=== PATIENT | male | born 1970 | race Caucasian/White ===

== ENCOUNTER 2016-10-31 19:53 | Inpatient (IN) | payer MEDICAID ==
[~2016-10-31] VITALS: Ht 182.9 cm; Wt 98.3 kg
[2016-10-31] MEDS ORDERED: LITH300C3 PO (22:44)
[2016-10-31] MEDS ORDERED: CITA20TA9 PO (22:44)
[2016-10-31] MEDS ORDERED: BENZ1TAB10 PO (22:44)
[2016-10-31] MEDS ORDERED: VIST50 PO (22:44)
[2016-10-31] MEDS ORDERED: HALO5 PO (22:44)
[2016-11-01 00:04] VITALS: BP 110/71
[2016-11-01 08:28] VITALS: BP 102/66
[2016-11-01 08:46] LABS: BASOPHILS % (AUTO) 0.6 % (0.0-2.0); EOSINOPHILS % (AUTO) 8.4 % (1.0-6.0); HEMATOCRIT 43.5 % (41-53); HEMOGLOBIN 14.2 g/dL (13.5-17.5); LYMPHOCYTES # (AUTO) 2.6 K/uL (1.0-4.8); LYMPHOCYTES % (AUTO) 32.5 % (22.0-44.0); MEAN CORPUSCULAR HEMOGLOBIN 28.6 pg (26.0-34.0); MEAN CORPUSCULAR HGB CONC 32.7 G/dL (31.0-37.0); MEAN CORPUSCULAR VOLUME 87 fL (80-100); MONOCYTES # (AUTO) 0.5 K/uL (0.1-1.0); MONOCYTES % (AUTO) 5.9 % (2.0-9.0); NEUTROPHILS # (AUTO) 4.2 K/uL (1.8-7.7); NEUTROPHILS % (AUTO) 52.6 % (40.0-70.0); PLATELET COUNT (AUTO) 215 K/uL (150-450); RED BLOOD CELL COUNT(AUTO) 4.97 MIL/uL (4.50-5.90); RED CELL DISTRIBUTION WIDTH 12.8 % (11.5-14.5); WHITE BLOOD COUNT (AUTO) 8.1 K/uL (4.5-11.0)
[2016-11-01 09:29] LABS: HEMOGLOBIN A1C 6.2 % (4.5-6.2)
[2016-11-01] MEDS: LORazepam 2 MG TABLET PO PRN ×2 (09:29→18:59)
[2016-11-01 09:55] LABS: ALANINE AMINOTRANSFERASE 47 U/L (12-78); ALBUMIN 3.5 g/dL (3.4-5.0); ANION GAP 10 mmol/L (8-16); ASPARTATE AMINOTRANSFERASE 26 U/L (15-37); BILIRUBIN,TOTAL 0.7 mg/dL (0.1-1.0); CALCIUM, TOTAL 8.8 mg/dL (8.8-10.5); CARBON DIOXIDE 28 mmol/L (22-29); CHLORIDE 103 mmol/L (98-107); CREATININE 1.03 mg/dL (0.60-1.30); GLOMERULAR FILTR. RATE CALC > 60 mL/min (>60); POTASSIUM 3.4 mmol/L (3.5-5.1); SODIUM SERUM 141 mmol/L (136-145); THYROID STIMULATING HORMONE 1.85 uIU/mL (0.36-3.74); TOTAL PROTEIN, SERUM 7.5 g/dL (6.4-8.2); UREA NITROGEN, BLOOD 13 mg/dL (7-18)
[2016-11-01] MEDS ORDERED: LORATADINE 10 MG TABLET PO PRN (10:15)
[2016-11-01 16:19] VITALS: BP 104/65
[2016-11-01] MEDS ORDERED: POTASSIUM CHLORIDE 20 MEQ ER TABLET PO ONE (17:15)
[2016-11-01 17:27] VITALS: BP 118/75
[2016-11-01] MEDS: BENZTROPINE MESYLATE 1 MG TABLET PO SCH (20:02)
[2016-11-01] MEDS: HALOPERIDOL 10 MG TABLET PO SCH (20:03)
[2016-11-01] MEDS: ZOLPIDEM TARTRATE 10 MG TABLET PO PRN (20:03)
[2016-11-02 06:39] VITALS: BP 129/74
[2016-11-02 08:35] VITALS: BP 109/72
[2016-11-02] MEDS: CITALOPRAM HYDROBROMIDE 20 MG TABLET PO SCH (08:42)
[2016-11-02] MEDS: LITHIUM CARBONATE 300 MG CAPSULE PO SCH ×2 (08:42→16:21)
[2016-11-02] MEDS ORDERED: ACETAMINOPHEN 325 MG TABLET PO PRN (10:30)
[2016-11-02] MEDS ORDERED: IBUPROFEN 400 MG TABLET PO PRN (10:30)
[2016-11-02] MEDS: LORazepam 2 MG TABLET PO PRN (12:57)
[2016-11-02 16:12] VITALS: BP 127/68
[2016-11-02] MEDS: BENZTROPINE MESYLATE 1 MG TABLET PO SCH (20:45)
[2016-11-02] MEDS: ZOLPIDEM TARTRATE 10 MG TABLET PO PRN (20:45)
[2016-11-02] MEDS: HALOPERIDOL 10 MG TABLET PO SCH (20:46)
[2016-11-02] MEDS: SIMVASTATIN 10 MG TABLET PO SCH (20:46)
[2016-11-03 00:38] VITALS: BP 111/67
[2016-11-03 08:35] VITALS: BP 104/71
[2016-11-03] MEDS: CITALOPRAM HYDROBROMIDE 20 MG TABLET PO SCH (09:20)
[2016-11-03] MEDS: LITHIUM CARBONATE 300 MG CAPSULE PO SCH ×2 (09:20→16:25)
[2016-11-03] MEDS: LORazepam 2 MG TABLET PO PRN ×2 (09:31→19:13)
[2016-11-03 16:00] VITALS: BP 106/80
[2016-11-03] MEDS: SIMVASTATIN 10 MG TABLET PO SCH (20:16)
[2016-11-03] MEDS: BENZTROPINE MESYLATE 1 MG TABLET PO SCH (20:16)
[2016-11-03] MEDS: HALOPERIDOL 10 MG TABLET PO SCH (20:16)
[2016-11-04 06:20] VITALS: BP 106/68
[2016-11-04] MEDS: LORazepam 2 MG TABLET PO PRN ×2 (06:24→12:29)
[2016-11-04 08:23] VITALS: BP 106/63
[2016-11-04] MEDS: HALOPERIDOL 5 MG TABLET PO SCH (09:12)
[2016-11-04] MEDS: CITALOPRAM HYDROBROMIDE 20 MG TABLET PO SCH (09:12)
[2016-11-04] MEDS: LITHIUM CARBONATE 300 MG CAPSULE PO SCH ×2 (09:12→16:27)
[2016-11-04] MEDS: HALOPERIDOL 5 MG TABLET PO PRN (13:54)
[2016-11-04 16:20] VITALS: BP 112/71
[2016-11-04] MEDS: SIMVASTATIN 10 MG TABLET PO SCH (20:34)
[2016-11-04] MEDS: BENZTROPINE MESYLATE 1 MG TABLET PO SCH (20:34)
[2016-11-04] MEDS: HALOPERIDOL 10 MG TABLET PO SCH (20:34)
[2016-11-04] MEDS: ZOLPIDEM TARTRATE 10 MG TABLET PO PRN (22:32)
[2016-11-05 00:34] VITALS: BP 109/69
[2016-11-05] MEDS: GuaiFENesin/D-METHORPHAN [SUGAR-FREE] 200-20MG/10 ML SYRUP UDCUP PO PRN (06:38)
[2016-11-05 07:05] VITALS: BP 111/116
[2016-11-05] MEDS: HALOPERIDOL 5 MG TABLET PO SCH (09:19)
[2016-11-05] MEDS: LITHIUM CARBONATE 300 MG CAPSULE PO SCH ×2 (09:19→17:14)
[2016-11-05] MEDS: CITALOPRAM HYDROBROMIDE 20 MG TABLET PO SCH (09:19)
[2016-11-05] MEDS: LORazepam 2 MG TABLET PO PRN ×2 (11:49→15:52)
[2016-11-05 13:35] VITALS: BP 116/60
[2016-11-05 16:30] VITALS: BP 114/72
[2016-11-05] MEDS: HALOPERIDOL 10 MG TABLET PO SCH (17:15)
[2016-11-05] MEDS: BENZTROPINE MESYLATE 1 MG TABLET PO SCH (20:42)
[2016-11-05] MEDS: SIMVASTATIN 10 MG TABLET PO SCH (20:42)
[2016-11-06 06:35] VITALS: BP 108/64
[2016-11-06 08:40] VITALS: BP 100/67
[2016-11-06] MEDS: LITHIUM CARBONATE 300 MG CAPSULE PO SCH (08:57)
[2016-11-06] MEDS: CITALOPRAM HYDROBROMIDE 20 MG TABLET PO SCH (08:57)
[2016-11-06] MEDS: HALOPERIDOL 10 MG TABLET PO SCH ×2 (08:57→16:08)
[2016-11-06] MEDS: LORazepam 2 MG TABLET PO PRN ×2 (09:52→19:26)
[2016-11-06 16:08] VITALS: BP 105/69
[2016-11-06] MEDS: GuaiFENesin/D-METHORPHAN [SUGAR-FREE] 200-20MG/10 ML SYRUP UDCUP PO PRN (19:26)
[2016-11-06] MEDS: BENZTROPINE MESYLATE 1 MG TABLET PO SCH (20:36)
[2016-11-06] MEDS: SIMVASTATIN 10 MG TABLET PO SCH (20:36)
[2016-11-06] MEDS: LITHIUM CARBONATE 600 MG CAPSULE PO SCH (20:37)
[2016-11-07 06:13] VITALS: BP 109/60
[2016-11-07 08:12] VITALS: BP 126/76
[2016-11-07] MEDS: HALOPERIDOL 10 MG TABLET PO SCH ×2 (09:03→16:46)
[2016-11-07] MEDS: CITALOPRAM HYDROBROMIDE 20 MG TABLET PO SCH (09:03)
[2016-11-07] MEDS: LITHIUM CARBONATE 300 MG CAPSULE PO SCH (09:03)
[2016-11-07] MEDS: LORazepam 2 MG TABLET PO PRN (12:14)
[2016-11-07 16:35] VITALS: BP 101/64
[2016-11-07] MEDS: BENZTROPINE MESYLATE 1 MG TABLET PO SCH (20:30)
[2016-11-07] MEDS: SIMVASTATIN 10 MG TABLET PO SCH (20:30)
[2016-11-07] MEDS: LITHIUM CARBONATE 600 MG CAPSULE PO SCH (20:35)
[2016-11-07] MEDS: ZOLPIDEM TARTRATE 10 MG TABLET PO PRN (21:17)
[2016-11-08 06:29] VITALS: BP 118/71
[2016-11-08 08:00] VITALS: BP 111/71
[2016-11-08] MEDS: LITHIUM CARBONATE 300 MG CAPSULE PO SCH (09:00)
[2016-11-08] MEDS: HALOPERIDOL 10 MG TABLET PO SCH ×2 (09:00→18:19)
[2016-11-08] MEDS: CITALOPRAM HYDROBROMIDE 20 MG TABLET PO SCH (09:00)
[2016-11-08] MEDS: LORazepam 2 MG TABLET PO PRN ×2 (11:12→19:09)
[2016-11-08] MEDS: HALOPERIDOL 5 MG TABLET PO PRN (11:14)
[2016-11-08 16:10] VITALS: BP 125/74
[2016-11-08] MEDS: SIMVASTATIN 10 MG TABLET PO SCH (21:48)
[2016-11-08] MEDS: BENZTROPINE MESYLATE 1 MG TABLET PO SCH (21:48)
[2016-11-08] MEDS: LITHIUM CARBONATE 600 MG CAPSULE PO SCH (21:48)
[2016-11-09 00:15] VITALS: BP 114/73
[2016-11-09 08:47] VITALS: BP 101/67
[2016-11-09] MEDS: LORazepam 2 MG TABLET PO PRN (10:05)
[2016-11-09] MEDS: LITHIUM CARBONATE 300 MG CAPSULE PO SCH (10:05)
[2016-11-09] MEDS: HALOPERIDOL 10 MG TABLET PO SCH (10:05)
[2016-11-09] MEDS: CITALOPRAM HYDROBROMIDE 20 MG TABLET PO SCH (10:05)
[2016-11-09] MEDS ORDERED: LITH600 PO (11:22)
[2016-11-09] MEDS ORDERED: SIMV-259 PO (11:22)
== END 2016-11-09 13:25 | disposition home or self-care (01) | DRG 750 ==
LOC: B2S 22:33 → EDSTATUS 22:36
DX: F25.1 Schizoaffective disorder, depressive type (principal); R45.851 Suicidal ideations; E78.5 Hyperlipidemia, unspecified; E87.6 Hypokalemia; F10.10 Alcohol abuse, uncomplicated; F19.10 Other psychoactive substance abuse, uncomplicated; F99 Mental disorder, not otherwise specified; Z79.899 Other long term (current) drug therapy
CPT/HCPCS: 83036; 84132; 84439; 84443

== ENCOUNTER 2017-03-28 19:50 | Inpatient (IN) | payer MEDICAID ==
[~2017-03-28] VITALS: Ht 180.3 cm; Wt 96.4 kg
[~2017-03-28 19:50] MED LIST: BENZ1TAB10 PO; CITA20TA9 PO; HALO5 PO; LITH300C3 PO; LITH600 PO; SIMV-259 PO
[2017-03-28 22:23] VITALS: BP 102/72
[2017-03-28 23:54] VITALS: BP 96/68
[2017-03-29 06:03] VITALS: BP 105/70
[2017-03-29] MEDS: LORazepam 2 MG TABLET PO PRN ×2 (06:08→10:40)
[2017-03-29 08:23] LABS: BASOPHILS % (AUTO) 0.2 % (0.0-2.0); EOSINOPHILS % (AUTO) 8.2 % (1.0-6.0); HEMATOCRIT 40.9 % (41-53); HEMOGLOBIN 13.8 g/dL (13.5-17.5); LYMPHOCYTES # (AUTO) 1.8 K/uL (1.0-4.8); LYMPHOCYTES % (AUTO) 27.5 % (22.0-44.0); MEAN CORPUSCULAR HGB CONC 33.8 G/dL (31.0-37.0); MEAN CORPUSCULAR VOLUME 89 fL (80-100); MONOCYTES # (AUTO) 0.3 K/uL (0.1-1.0); MONOCYTES % (AUTO) 4.6 % (2.0-9.0); NEUTROPHILS % (AUTO) 59.5 % (40.0-70.0); PLATELET COUNT (AUTO) 218 K/uL (150-450); RED BLOOD CELL COUNT(AUTO) 4.61 MIL/uL (4.50-5.90); RED CELL DISTRIBUTION WIDTH 13.9 % (11.5-14.5); WHITE BLOOD COUNT (AUTO) 6.7 K/uL (4.5-11.0)
[2017-03-29 08:44] LABS: HEMOGLOBIN A1C 6.2 % (4.5-6.2)
[2017-03-29 08:48] LABS: ALANINE AMINOTRANSFERASE 25 U/L (12-78); ALBUMIN 3.7 g/dL (3.4-5.0); ANION GAP 9 mmol/L (8-16); ASPARTATE AMINOTRANSFERASE 11 U/L (15-37); BILIRUBIN,TOTAL 0.5 mg/dL (0.1-1.0); CALCIUM, TOTAL 9.2 mg/dL (8.8-10.5); CARBON DIOXIDE 26 mmol/L (22-29); CHLORIDE 105 mmol/L (98-107); CREATININE 1.14 mg/dL (0.60-1.30); GLOMERULAR FILTR. RATE CALC > 60 mL/min (>60); POTASSIUM 3.9 mmol/L (3.5-5.1); SODIUM SERUM 140 mmol/L (136-145); THYROID STIMULATING HORMONE 1.92 uIU/mL (0.36-3.74); TOTAL PROTEIN, SERUM 6.9 g/dL (6.4-8.2); UREA NITROGEN, BLOOD 11 mg/dL (7-18)
[2017-03-29 13:39] VITALS: BP 117/79
[2017-03-29 16:00] VITALS: BP 120/77
[2017-03-29] MEDS: ZOLPIDEM TARTRATE 10 MG TABLET PO PRN (20:33)
[2017-03-29] MEDS: SIMVASTATIN 10 MG TABLET PO SCH (20:37)
[2017-03-29] MEDS: OLANZapine 7.5 MG TABLET PO SCH (20:37)
[2017-03-30 06:40] VITALS: BP 100/73
[2017-03-30] MEDS: LITHIUM CARBONATE 300 MG CAPSULE PO SCH ×2 (08:42→16:14)
[2017-03-30 09:17] VITALS: BP 111/66
[2017-03-30] MEDS: LORazepam 2 MG TABLET PO PRN ×2 (11:28→16:15)
[2017-03-30 16:00] VITALS: BP 106/62
[2017-03-30] MEDS: HALOPERIDOL 5 MG TABLET PO PRN (19:40)
[2017-03-30] MEDS: SIMVASTATIN 10 MG TABLET PO SCH (20:28)
[2017-03-30] MEDS: OLANZapine 7.5 MG TABLET PO SCH (20:28)
[2017-03-31 02:39] VITALS: BP 115/86
[2017-03-31 08:11] VITALS: BP 98/67
[2017-03-31] MEDS: LITHIUM CARBONATE 300 MG CAPSULE PO SCH ×2 (08:40→16:04)
[2017-03-31] MEDS: LORazepam 2 MG TABLET PO PRN ×2 (11:04→15:30)
[2017-03-31 16:00] VITALS: BP 120/77
[2017-03-31] MEDS: OLANZapine 7.5 MG TABLET PO SCH (20:11)
[2017-03-31] MEDS: SIMVASTATIN 10 MG TABLET PO SCH (20:11)
[2017-03-31] MEDS: ZOLPIDEM TARTRATE 10 MG TABLET PO PRN (20:32)
[2017-04-01 00:01] VITALS: BP 109/67
[2017-04-01 08:12] VITALS: BP 109/72
[2017-04-01] MEDS: LITHIUM CARBONATE 300 MG CAPSULE PO SCH ×2 (08:35→16:09)
[2017-04-01] MEDS ORDERED: LOPERAMIDE HCL 2 MG CAPSULE PO PRN (10:30)
[2017-04-01] MEDS: LORazepam 2 MG TABLET PO PRN ×2 (11:52→15:56)
[2017-04-01] MEDS: HALOPERIDOL 5 MG TABLET PO PRN ×2 (13:06→17:10)
[2017-04-01 16:27] VITALS: BP 117/66
[2017-04-01] MEDS: SIMVASTATIN 10 MG TABLET PO SCH (20:09)
[2017-04-01] MEDS: OLANZapine 7.5 MG TABLET PO SCH (20:09)
[2017-04-02 01:20] VITALS: BP 115/62
[2017-04-02 08:13] VITALS: BP 103/62
[2017-04-02] MEDS: HALOPERIDOL 5 MG TABLET PO PRN (08:30)
[2017-04-02] MEDS: LITHIUM CARBONATE 300 MG CAPSULE PO SCH ×2 (08:30→16:15)
[2017-04-02] MEDS: LORazepam 2 MG TABLET PO PRN ×2 (10:16→16:15)
[2017-04-02 10:29] LABS: APPEARANCE,URINE CLEAR (CLEAR); GLUCOSE, URINE (UA) NEGATIVE (NEGATIVE); KETONES,URINE NEGATIVE (NEGATIVE); LEUKOCYTE ESTERASE ,URINE NEGATIVE (NEGATIVE); OCCULT BLOOD,URINE NEGATIVE (NEGATIVE); PH,URINE 6.5 (5.0-8.0); PROTEIN,URINE NEGATIVE (NEGATIVE)
[2017-04-02 10:35] LABS: ADD UA MICROSCOPIC NO
[2017-04-02] MEDS ORDERED: DiphenhydrAMINE HCL 50 MG/ML VIAL ONE (10:41)
[2017-04-02] MEDS ORDERED: DiphenhydrAMINE HCL 50 MG/ML VIAL IM ONE (10:45)
[2017-04-02 16:10] VITALS: BP 103/80
[2017-04-02] MEDS: SIMVASTATIN 10 MG TABLET PO SCH (20:53)
[2017-04-02] MEDS: ZOLPIDEM TARTRATE 10 MG TABLET PO PRN (20:54)
[2017-04-02] MEDS: OLANZapine 7.5 MG TABLET PO SCH (20:54)
[2017-04-03 02:58] VITALS: BP 126/75
[2017-04-03] MEDS ORDERED: OLAN7.5T2 PO (08:13)
[2017-04-03 08:29] VITALS: BP 100/61
[2017-04-03 08:58] VITALS: BP 131/66
[2017-04-03] MEDS: LORazepam 2 MG TABLET PO PRN (08:59)
[2017-04-03] MEDS: LITHIUM CARBONATE 300 MG CAPSULE PO SCH (08:59)
== END 2017-04-03 11:45 | disposition home or self-care (01) | DRG 750 ==
LOC: EDSTATUS 21:32 → B2S 22:12
PROVIDERS: ADMIT Psychiatry & Neurology Psychiatry; ATTEND Psychiatry & Neurology Psychiatry
DX: F25.9 Schizoaffective disorder, unspecified (principal); Z59.0 Homelessness; R45.851 Suicidal ideations; E78.5 Hyperlipidemia, unspecified; Z82.49 Family history of ischemic heart disease and other diseases of the circulatory system; Z83.3 Family history of diabetes mellitus
CPT/HCPCS: 80307; 83036; 84439; 84443; J1200